=== PATIENT | male | born 1935 | race Asian ===

== ENCOUNTER 2023-11-18 10:38 | Inpatient (IN) | payer OTHER ==
[2023-11-18] VITALS (9 sets, daily range): BP systolic 91–126; BP diastolic 56–76; TEMP 97.4–97.9; O2SAT 92–99
[~2023-11-18] VITALS: Ht 165.1 cm; Wt 79.4 kg
[~2023-11-18 10:38] MED LIST: AMIN30LI66 GT; ASCO500T21 GT; COLL30OI TP; MULT-619 GT; MUPI22OI2 TP; VITS42.53 TP
[2023-11-18] MEDS: IV NS 0.9% 1,000 ML BAG IV ONE (11:33)
[2023-11-18] MEDS: PIPERACILLIN /TAZOBACTAM 3.375 G in IV D5W 50 ML IV ONE (11:35)
[2023-11-18] MEDS ORDERED: DEXTROSE 50%-WATER 50 ML DISP.SYRIN ONE (11:36)
[2023-11-18] MEDS ORDERED: ACETAMINOPHEN 650 MG/SUPP.RECT RC ONE (11:36)
[2023-11-18] MEDS: DEXTROSE 50%-WATER 50 ML DISP.SYRIN IV ONE (11:37)
[2023-11-18] MEDS: ACETAMINOPHEN 650 MG/SUPP.RECT RC ONE (11:37)
[2023-11-18 11:48] LABS: CALCIUM, SERUM 8.5 mg/dL (8.5-10.1); CARBON DIOXIDE 23 mmol/L (21-32); CHLORIDE 102 mmol/L (98-107); GLUCOSE 61 mg/dL (74-106); SODIUM SERUM 133 mmol/L (136-145); UREA NITROGEN, BLOOD 71 mg/dL (7-18)
[2023-11-18] MEDS: VANCOMYCIN 1 GM in IV D5W 250 ML IV ONE (11:50)
[2023-11-18 11:51] LABS: BASOPHILS % (AUTO) 0.2 % (0.0-2.0); EOSINOPHILS % (AUTO) 0.3 % (0.0-6.0); HEMATOCRIT 21 % (39-51); LYMPHOCYTES # (AUTO) 0.2 K/uL (0.8-4.8); LYMPHOCYTES % (AUTO) 1.7 % (20.0-44.0); MEAN CORPUSCULAR HEMOGLOBIN 29 PG (26.0-33.0); MEAN CORPUSCULAR HGB CONC 32 g/dl (31.0-36.0); MEAN CORPUSCULAR VOLUME 89 fL (80-96); MONOCYTES # (AUTO) 0.2 K/uL (0.1-1.30); MONOCYTES % (AUTO) 2.4 % (2.0-12.0); NEUTROPHILS # (AUTO) 9.6 K/uL (1.8-8.9); NEUTROPHILS % (AUTO) 95.4 % (43.0-81.0); PLATELET COUNT (AUTO) 409 K/uL (150-450); RED BLOOD CELL COUNT(AUTO) 2.38 MIL/uL (4.5-6.0); RED CELL DISTRIBUTION WIDTH 15.9 % (11.5-15.0); WHITE BLOOD COUNT (AUTO) 10.1 K/uL (4.3-11.0)
[2023-11-18 11:53] LABS: HEMOGLOBIN 6.8 g/dL (13.5-17.5)
[2023-11-18] MEDS: AZITHROMYCIN 500 MG in IV D5W 250 ML IV ONE (11:54)
[2023-11-18 11:59] LABS: ALANINE AMINOTRANSFERASE 27 U/L (12-78); ALKALINE PHOSPHATASE 134 U/L (46-116); ASPARTATE AMINOTRANSFERASE 31 U/L (15-37); BILIRUBIN,DIRECT 0.3 mg/dL (0.0-0.2); BILIRUBIN,TOTAL 0.4 mg/dL (0.2-1.0); NT-PRO BNP 4590 pg/mL (0-125); TOTAL PROTEIN, SERUM 6.5 g/dL (6.4-8.2)
[2023-11-18 12:01] LABS: ALBUMIN 1.1 g/dL (3.4-5.0); POTASSIUM 6.3 mmol/L (3.5-5.1)
[2023-11-18 12:29] LABS: BAND % (MANUAL) 8 % (0.0-5.0); NEUTROPHILS % (MANUAL) 81 (42-76)
[2023-11-18] MEDS ORDERED: SODIUM POLYSTYRENE SULFONATE 15 G/60 ML BOTTLE ONE (12:29)
[2023-11-18 12:30] LABS: ANISOCYTOSIS 1+; BASOPHILS % (MANUAL) 0 % (0.0-2.0); EOSINOPHILS % (MANUAL) 0 % (0-4); HYPOCHROMASIA 1+; LYMPHOCYTES % (MANUAL) 6 % (16-48); MONOCYTES % (MANUAL) 5 % (0-11.0); OVALOCYTES 1+; PLATELET ESTIMATE ADEQUATE
[2023-11-18] MEDS ORDERED: SODIUM BICARBONATE SYR 50 MEQ/50 ML DISP.SYRIN ONE (12:30)
[2023-11-18] MEDS: SODIUM POLYSTYRENE SULFONATE 15 G/60 ML BOTTLE PO ONE (12:38)
[2023-11-18] MEDS: SODIUM BICARBONATE SYR 50 MEQ/50 ML DISP.SYRIN IV ONE (12:40)
[2023-11-18] MEDS ORDERED: ALBUTEROL FS 2.5 MG/3 ML VIAL.NEB ONE (13:16)
[2023-11-18] MEDS: ALBUTEROL FS 2.5 MG/3 ML VIAL.NEB NEB ONE (13:21)
[2023-11-18] MEDS ORDERED: ONDANSETRON HCL/PF 4 MG/2 ML VIAL IVP PRN (14:30)
[2023-11-18] MEDS ORDERED: Z GUARD REMEDY 4 OZ OINT TP PRN (14:30)
[2023-11-18] MEDS: PANTOPRAZOLE 40 MG VIAL IV SCH (14:30)
[2023-11-18] MEDS ORDERED: ZOLPIDEM TARTRATE 5 MG TABLET PO PRN (14:30)
[2023-11-18] MEDS: CEFEPIME 2 GM in IV D5W 100 ML IV SCH (17:17)
[2023-11-18] MEDS: IV NS 0.9% 250 ML IV PRN (17:51)
[2023-11-18] MEDS ORDERED: ACET-868 GT (18:16)
[2023-11-18] MEDS ORDERED: FERR220S2 GT (18:16)
[2023-11-18] MEDS ORDERED: ACET-2605 GT (18:16)
[2023-11-18] MEDS ORDERED: CHLO473M5 PO (18:16)
[2023-11-18] MEDS ORDERED: CRAN3875 GT (18:16)
[2023-11-18] MEDS ORDERED: NA P133E RC (18:16)
[2023-11-18] MEDS ORDERED: SITA100T GT (18:16)
[2023-11-18] MEDS ORDERED: EPOE1VIA7 SQ (18:16)
[2023-11-18] MEDS ORDERED: FINA5TAB11 GT (18:16)
[2023-11-18] MEDS ORDERED: MAGN400O6 GT (18:16)
[2023-11-18] MEDS ORDERED: BISA10SU12 RC (18:16)
[2023-11-18] MEDS ORDERED: METF-441 GT (18:16)
[2023-11-18] MEDS ORDERED: LEVE100S GT (18:16)
[2023-11-18] MEDS ORDERED: IPRA4AER IH ×2 (18:16)
[2023-11-18] MEDS ORDERED: HYDR-4209 GT (18:16)
[2023-11-18] MEDS ORDERED: MULT1TAB70 GT (18:16)
[2023-11-18] MEDS ORDERED: PANT40SU2 GT (18:16)
[2023-11-18] MEDS ORDERED: TAMS-12 GT (18:16)
[2023-11-18] MEDS ORDERED: HYDR-4075 GT (18:16)
[2023-11-18] MEDS ORDERED: SENN-261 GT (18:16)
[2023-11-18] MEDS ORDERED: SODI15OR5 GT (18:16)
[2023-11-18] MEDS ORDERED: HONE44PA TP (18:16)
[2023-11-18] MEDS ORDERED: FURO-145 GT (18:16)
[2023-11-18] MEDS ORDERED: NUT.250L18 GT (18:16)
[2023-11-18] MEDS ORDERED: DOCU100C36 GT (18:16)
[2023-11-18] MEDS ORDERED: INSU100V27 SQ (18:16)
[2023-11-18] MEDS ORDERED: INSU100V7 SQ (18:16)
[2023-11-18 18:47] LABS: CALCIUM, SERUM 8.3 mg/dL (8.5-10.1); POTASSIUM 5.1 mmol/L (3.5-5.1)
[2023-11-19] VITALS (7 sets, daily range): BP systolic 97–148; BP diastolic 57–76; TEMP 97.4–97.9; O2SAT 96–99
[2023-11-19 07:06] LABS: BASOPHILS % (AUTO) 0.1 % (0.0-2.0); EOSINOPHILS % (AUTO) 0.4 % (0.0-6.0); HEMATOCRIT 24 % (39-51); HEMOGLOBIN 7.7 g/dL (13.5-17.5); LYMPHOCYTES # (AUTO) 0.3 K/uL (0.8-4.8); LYMPHOCYTES % (AUTO) 3.6 % (20.0-44.0); MEAN CORPUSCULAR HEMOGLOBIN 29 PG (26.0-33.0); MEAN CORPUSCULAR HGB CONC 32 g/dl (31.0-36.0); MEAN CORPUSCULAR VOLUME 88 fL (80-96); MONOCYTES # (AUTO) 0.3 K/uL (0.1-1.30); MONOCYTES % (AUTO) 3.9 % (2.0-12.0); NEUTROPHILS # (AUTO) 7.9 K/uL (1.8-8.9); PLATELET COUNT (AUTO) 340 K/uL (150-450); RED BLOOD CELL COUNT(AUTO) 2.69 MIL/uL (4.5-6.0); WHITE BLOOD COUNT (AUTO) 8.6 K/uL (4.3-11.0)
[2023-11-19 07:32] LABS: CALCIUM, SERUM 8.3 mg/dL (8.5-10.1); CARBON DIOXIDE 21 mmol/L (21-32); CHLORIDE 105 mmol/L (98-107); CREATININE 0.7 mg/dL (0.6-1.3); GLUCOSE 140 mg/dL (74-106); MAGNESIUM 2.7 mg/dL (1.8-2.4); PHOSPHORUS 3.5 mg/dL (2.5-4.9); POTASSIUM 4.6 mmol/L (3.5-5.1); SODIUM SERUM 137 mmol/L (136-145); UREA NITROGEN, BLOOD 59 mg/dL (7-18)
[2023-11-19] MEDS: VANCOMYCIN 1 GM in IV D5W 250 ML IV SCH (10:29)
[2023-11-19] MEDS ORDERED: NA PHOS,M-B/NA PHOS,DI-BA 1 EA ENEMA RC PRN (11:30)
[2023-11-19] MEDS ORDERED: HOME MED MISCELLANEOUS XX SCH (11:30)
[2023-11-19] MEDS ORDERED: BISACODYL SUPP (10 MG) 10 MG/SUPP.RECT SUPP.RECT RC PRN (11:30)
[2023-11-19] MEDS ORDERED: GLUCERNA 1.2 1,000 ML BOTTLE NG PRN (11:30)
[2023-11-19] MEDS ORDERED: MAGNESIUM HYDROXIDE 30 ML UDC GT PRN (11:30)
[2023-11-19] MEDS ORDERED: DEXTROSE 50%-WATER 50 ML DISP.SYRIN IV PRN (11:30)
[2023-11-19] MEDS ORDERED: hydrALAZINE HCL 10 MG TABLET GT PRN (11:30)
[2023-11-19] MEDS ORDERED: PROSTAT (PYXIS) 30 ML UDC GT SCH (12:00)
[2023-11-19] MEDS: GLUCERNA 1.2 1,000 ML BOTTLE NG PRN (12:44)
[2023-11-19] MEDS: ASCORBIC ACID 500 MG TABLET GT SCH (12:44)
[2023-11-19] MEDS: BLOOD SUGAR DIAGNOSTIC 1 EACH STRIP IN SCH (12:44)
[2023-11-19] MEDS: INSULIN REGULAR, HUMAN 100 UNIT/ML 3 ML VIAL SQ PRN (12:45)
[2023-11-19] MEDS: THERAHONEY GEL 1.5 OZ TUBE TP SCH (13:00)
[2023-11-19] MEDS: EPOETIN ALFA (10,000 UNIT) 10,000 UNIT/ML VIAL SQ SCH (16:30)
[2023-11-19] MEDS: SENNOSIDES 8.6 MG TABLET GT SCH (16:49)
[2023-11-19] MEDS: LEVETIRACETAM SOL (5 ML) 100 MG/ML UDC GT SCH (16:49)
[2023-11-19] MEDS: CHLORHEXIDINE GLUCONATE 15 ML UDC MM SCH (16:50)
[2023-11-19] MEDS ORDERED: SODIUM POLYSTYRENE SULFONATE 15 G/60 ML BOTTLE GT SCH (17:00)
[2023-11-19] MEDS: INSULIN GLARGINE, 100 UNIT/ML CARTRIDGE SQ SCH (21:03)
[2023-11-19] MEDS: TAMSULOSIN 0.4 MG CAP.SR.24H GT SCH (21:04)
[2023-11-20] VITALS: BP 137/88; TEMP 98; O2SAT 98
[2023-11-20 04:00] VITALS: BP 121/63; TEMP 98.4; O2SAT 98
[2023-11-20 06:54] LABS: APPEARANCE,URINE TURBID (CLEAR); BILIRUBIN,URINE NEGATIVE (NEGATIVE); BLOOD, URINE 1+ Ery/uL (NEGATIVE); COLOR,URINE DARK YELLOW (YELLOW); KETONES,URINE NEGATIVE (NEGATIVE); LEUKOCYTE ESTERASE ,URINE 1+ (NEGATIVE); NITRITE, URINE NEGATIVE (NEGATIVE); PROTEIN,URINE TRACE mg/dl (NEGATIVE); UGLUCOSE NEGATIVE (NEGATIVE); UROBILINOGEN,URINE 0.2 EU/dL (0.2)
[2023-11-20 07:08] LABS: ADD URINE CULTURE YES; BACTERIA,URINE Rare /HPF (None Seen); RBC,URINE 0-2 /HPF (0-2); SQUAMOUS EPITHELIAL CELL,UR Rare /HPF (None Seen); URINE AMORPHOUS URATE Moderate /HPF (None Seen)
[2023-11-20 07:21] LABS: BASOPHILS % (AUTO) 0.2 % (0.0-2.0); EOSINOPHILS # (AUTO) 0.2 K/uL (0.0-0.7); EOSINOPHILS % (AUTO) 1.6 % (0.0-6.0); HEMATOCRIT 26 % (39-51); HEMOGLOBIN 8.3 g/dL (13.5-17.5); LYMPHOCYTES # (AUTO) 0.3 K/uL (0.8-4.8); LYMPHOCYTES % (AUTO) 2.5 % (20.0-44.0); MEAN CORPUSCULAR HEMOGLOBIN 28 PG (26.0-33.0); MEAN CORPUSCULAR HGB CONC 32 g/dl (31.0-36.0); MEAN CORPUSCULAR VOLUME 87 fL (80-96); MONOCYTES # (AUTO) 0.3 K/uL (0.1-1.30); MONOCYTES % (AUTO) 2.3 % (2.0-12.0); NEUTROPHILS % (AUTO) 93.4 % (43.0-81.0); PLATELET COUNT (AUTO) 374 K/uL (150-450); RED BLOOD CELL COUNT(AUTO) 2.99 MIL/uL (4.5-6.0); RED CELL DISTRIBUTION WIDTH 16.3 % (11.5-15.0); WHITE BLOOD COUNT (AUTO) 11.8 K/uL (4.3-11.0)
[2023-11-20 07:22] LABS: EOSINOPHIL,URINE None Seen
[2023-11-20 07:48] LABS: BILIRUBIN,TOTAL 0.4 mg/dL (0.2-1.0); CALCIUM, SERUM 8.4 mg/dL (8.5-10.1); CREATININE 0.7 mg/dL (0.6-1.3); MAGNESIUM 2.7 mg/dL (1.8-2.4); PHOSPHORUS 3.4 mg/dL (2.5-4.9); TOTAL PROTEIN, SERUM 6.2 g/dL (6.4-8.2)
[2023-11-20 08:15] LABS: ALBUMIN 0.9 g/dL (3.4-5.0)
[2023-11-20] MEDS: FERROUS SULFATE UDC 300 MG/5 ML UDC GT SCH (08:39)
[2023-11-20] MEDS: FINASTERIDE (5 MG) 5 MG TABLET GT SCH (08:39)
[2023-11-20] MEDS: FUROSEMIDE 20 MG TABLET GT SCH (08:40)
[2023-11-20] MEDS: DOCUSATE SODIUM 100 MG CAPSULE PO SCH (08:40)
[2023-11-20] MEDS: MULTIVITAMINS,THERAGRAN 1 UDTAB TABLET GT SCH (08:40)
[2023-11-20] MEDS: PANTOPRAZOLE 40 MG/PACK PACK GT SCH (08:40)
[2023-11-20] MEDS: PROSOURCE / PROSTAT (PYXIS) 30 ML UDC GT SCH (08:42)
[2023-11-20] MEDS: LINAGLIPTIN 5 MG TABLET PO SCH (08:50)
[2023-11-20] MEDS: THERAHONEY GEL 1.5 OZ TUBE TP SCH (08:51)
[2023-11-20] MEDS: MUPIROCIN OINT 2% 22 GM TUBE TP SCH (08:51)
[2023-11-20] MEDS: VITAMINS A AND D 56.7 GM TUBE TP SCH (08:52)
[2023-11-20] MEDS: LORAZEPAM INJ 2 MG/ML VIAL IV PRN (09:32)
[2023-11-20 12:00] VITALS: BP 93/52; TEMP 97.5; O2SAT 98
[2023-11-20 12:47] LABS: ABG OXYGEN SATURATION 93.5 % (92.0-98.5); ABG PCO2 33.5 mmHg (35.0-45.0); ABG PH 7.463 (7.350-7.450); ABG PO2 68.6 mmHg (75.0-100.0); ABG TOTAL HEMOGLOBIN 10.2 G/dL (13.5-18.0); AaDO2 358.4 mmHg; COHb 0.3 % (0.5-1.5); MetHb 0.1 % (0.0-1.5); O2Hb 93.1 % (94.0-97.0); PEEP,BG 5 cm H2O; SITE, ABG Right Radial; VT, ABG 450 mL
[2023-11-20 16:00] VITALS: BP 124/75; TEMP 97.2; O2SAT 99
[2023-11-20 20:00] VITALS: BP 115/72; TEMP 97.8; O2SAT 99
[2023-11-21] VITALS: BP 123/88; TEMP 97.6; O2SAT 98
[2023-11-21 04:00] VITALS: BP 126/79; TEMP 98; O2SAT 98
[2023-11-21 07:26] LABS: BASOPHILS % (AUTO) 0.2 % (0.0-2.0); EOSINOPHILS # (AUTO) 0.4 K/uL (0.0-0.7); HEMATOCRIT 27 % (39-51); HEMOGLOBIN 8.6 g/dL (13.5-17.5); LYMPHOCYTES # (AUTO) 0.3 K/uL (0.8-4.8); LYMPHOCYTES % (AUTO) 1.8 % (20.0-44.0); MEAN CORPUSCULAR HEMOGLOBIN 28 PG (26.0-33.0); MEAN CORPUSCULAR HGB CONC 32 g/dl (31.0-36.0); MEAN CORPUSCULAR VOLUME 88 fL (80-96); MONOCYTES # (AUTO) 0.4 K/uL (0.1-1.30); MONOCYTES % (AUTO) 2.5 % (2.0-12.0); NEUTROPHILS # (AUTO) 16.6 K/uL (1.8-8.9); NEUTROPHILS % (AUTO) 93.5 % (43.0-81.0); PLATELET COUNT (AUTO) 353 K/uL (150-450); RED BLOOD CELL COUNT(AUTO) 3.06 MIL/uL (4.5-6.0); RED CELL DISTRIBUTION WIDTH 16.2 % (11.5-15.0); WHITE BLOOD COUNT (AUTO) 17.8 K/uL (4.3-11.0)
[2023-11-21 07:42] LABS: CALCIUM, SERUM 8.7 mg/dL (8.5-10.1); CREATININE 0.7 mg/dL (0.6-1.3); POTASSIUM 4.3 mmol/L (3.5-5.1)
[2023-11-21 08:00] VITALS: BP 167/92; TEMP 97.7; O2SAT 98
[2023-11-21 09:08] LABS: PTH, INTACT 21 pg/mL (15-65)
[2023-11-21 11:07] LABS: *SPE A/G RATIO 0.3 (0.7-1.7); *SPE ALBUMIN 1.4 g/dL (2.9-4.4); *SPE ALPHA-1-GLOBULIN 0.5 g/dL (0.0-0.4); *SPE ALPHA-2-GLOBULIN 1.2 g/dL (0.4-1.0); *SPE BETA GLOBULIN 0.8 g/dL (0.7-1.3); *SPE GLOBULIN, TOTAL 4.2 g/dL (2.2-3.9); *SPE M-SPIKE Not Observed g/dL (Not Observed); *SPE PROTEIN TOTAL 5.6 g/dL (6.0-8.5); *SPEGAMMA GLOBULIN 1.7 g/dL (0.4-1.8)
[2023-11-21 12:00] VITALS: BP 154/86; TEMP 98; O2SAT 98
[2023-11-21] MEDS: AZITHROMYCIN 500 MG in IV D5W 250 ML IV SCH (14:00)
[2023-11-21 16:00] VITALS: BP 138/94; TEMP 98.2; O2SAT 97
[2023-11-21 20:00] VITALS: BP 116/61; TEMP 98.7; O2SAT 97
[2023-11-21] MEDS: MEROPENEM 1 G in IV NS 0.9% 100 ML IV SCH (22:41)
[2023-11-22] VITALS: BP 132/87; TEMP 98; O2SAT 97
[2023-11-22 04:00] VITALS: BP 114/78; TEMP 97.6; O2SAT 97
[2023-11-22 07:10] LABS: BASOPHILS % (AUTO) 0.2 % (0.0-2.0); EOSINOPHILS # (AUTO) 0.3 K/uL (0.0-0.7); EOSINOPHILS % (AUTO) 1.5 % (0.0-6.0); HEMATOCRIT 25 % (39-51); HEMOGLOBIN 7.8 g/dL (13.5-17.5); LYMPHOCYTES # (AUTO) 0.5 K/uL (0.8-4.8); LYMPHOCYTES % (AUTO) 2.5 % (20.0-44.0); MEAN CORPUSCULAR HEMOGLOBIN 28 PG (26.0-33.0); MEAN CORPUSCULAR HGB CONC 31 g/dl (31.0-36.0); MEAN CORPUSCULAR VOLUME 89 fL (80-96); MONOCYTES # (AUTO) 0.5 K/uL (0.1-1.30); MONOCYTES % (AUTO) 2.5 % (2.0-12.0); NEUTROPHILS # (AUTO) 18.8 K/uL (1.8-8.9); NEUTROPHILS % (AUTO) 93.3 % (43.0-81.0); PLATELET COUNT (AUTO) 333 K/uL (150-450); RED BLOOD CELL COUNT(AUTO) 2.84 MIL/uL (4.5-6.0); WHITE BLOOD COUNT (AUTO) 20.1 K/uL (4.3-11.0)
[2023-11-22 07:45] LABS: CALCIUM, SERUM 8.8 mg/dL (8.5-10.1); CREATININE 0.8 mg/dL (0.6-1.3); POTASSIUM 4.6 mmol/L (3.5-5.1)
[2023-11-22 08:00] VITALS: BP 106/66; TEMP 97.5; O2SAT 97
[2023-11-22 12:00] VITALS: BP 160/60; TEMP 97.5; O2SAT 100
[2023-11-22 16:00] VITALS: BP 105/61; TEMP 97.5; O2SAT 99
[2023-11-22 20:00] VITALS: BP 112/70; TEMP 97.3; O2SAT 100
[2023-11-23] VITALS: BP 113/83; TEMP 98.7; O2SAT 100
[2023-11-23 04:00] VITALS: BP 121/78; TEMP 97.2; O2SAT 100
[2023-11-23 07:17] LABS: BASOPHILS % (AUTO) 0.2 % (0.0-2.0); EOSINOPHILS # (AUTO) 0.3 K/uL (0.0-0.7); EOSINOPHILS % (AUTO) 1.8 % (0.0-6.0); HEMATOCRIT 25 % (39-51); HEMOGLOBIN 7.8 g/dL (13.5-17.5); LYMPHOCYTES # (AUTO) 0.6 K/uL (0.8-4.8); LYMPHOCYTES % (AUTO) 3.4 % (20.0-44.0); MEAN CORPUSCULAR HEMOGLOBIN 28 PG (26.0-33.0); MEAN CORPUSCULAR HGB CONC 31 g/dl (31.0-36.0); MEAN CORPUSCULAR VOLUME 89 fL (80-96); MONOCYTES # (AUTO) 0.5 K/uL (0.1-1.30); MONOCYTES % (AUTO) 2.9 % (2.0-12.0); NEUTROPHILS # (AUTO) 15.5 K/uL (1.8-8.9); NEUTROPHILS % (AUTO) 91.7 % (43.0-81.0); PLATELET COUNT (AUTO) 316 K/uL (150-450); RED CELL DISTRIBUTION WIDTH 16.4 % (11.5-15.0)
[2023-11-23 07:47] LABS: CHLORIDE 103 mmol/L (98-107); CREATININE 0.6 mg/dL (0.6-1.3); GLUCOSE 194 mg/dL (74-106); POTASSIUM 4.4 mmol/L (3.5-5.1); SODIUM SERUM 135 mmol/L (136-145); UREA NITROGEN, BLOOD 37 mg/dL (7-18)
[2023-11-23 08:00] VITALS: BP 116/75; TEMP 98.1; O2SAT 100
[2023-11-23 08:12] LABS: CALCIUM, SERUM 8.7 mg/dL (8.5-10.1); CARBON DIOXIDE 23 mmol/L (21-32)
[2023-11-23] MEDS: AZITHROMYCIN 250 MG TABLET GT SCH (11:31)
[2023-11-23 12:00] VITALS: BP 117/67; TEMP 97.6; O2SAT 99
[2023-11-23 16:00] VITALS: BP 127/73; TEMP 99.1; O2SAT 93
[2023-11-23 20:00] VITALS: BP 112/64; TEMP 97.3; O2SAT 93
[2023-11-24] VITALS: BP 128/66; TEMP 97.5; O2SAT 94
[2023-11-24 04:00] VITALS: BP 126/82; TEMP 97.3; O2SAT 92
[2023-11-24] MEDS: ALBUTEROL FS 2.5 MG/3 ML VIAL.NEB NEB PRN (05:10)
[2023-11-24] MEDS: IPRATROPIUM NEB FS 0.5 MG/2.5 ML AMPUL.NEB NEB PRN (05:10)
[2023-11-24] MEDS: MORPHINE SULFATE INJ 2 MG/ML DISP.SYRIN IV PRN (05:47)
[2023-11-24 07:09] LABS: EOSINOPHILS # (AUTO) 0.3 K/uL (0.0-0.7); EOSINOPHILS % (AUTO) 1.8 % (0.0-6.0); HEMATOCRIT 25 % (39-51); HEMOGLOBIN 7.8 g/dL (13.5-17.5); LYMPHOCYTES # (AUTO) 0.3 K/uL (0.8-4.8); LYMPHOCYTES % (AUTO) 2.3 % (20.0-44.0); MEAN CORPUSCULAR HEMOGLOBIN 28 PG (26.0-33.0); MEAN CORPUSCULAR HGB CONC 31 g/dl (31.0-36.0); MEAN CORPUSCULAR VOLUME 89 fL (80-96); MONOCYTES # (AUTO) 0.3 K/uL (0.1-1.30); MONOCYTES % (AUTO) 2.4 % (2.0-12.0); NEUTROPHILS # (AUTO) 13.3 K/uL (1.8-8.9); NEUTROPHILS % (AUTO) 93.5 % (43.0-81.0); PLATELET COUNT (AUTO) 332 K/uL (150-450); RED BLOOD CELL COUNT(AUTO) 2.83 MIL/uL (4.5-6.0); RED CELL DISTRIBUTION WIDTH 16.6 % (11.5-15.0); WHITE BLOOD COUNT (AUTO) 14.2 K/uL (4.3-11.0)
[2023-11-24 07:26] LABS: CARBON DIOXIDE 27 mmol/L (21-32); CHLORIDE 103 mmol/L (98-107); CREATININE 0.6 mg/dL (0.6-1.3); GLUCOSE 205 mg/dL (74-106); POTASSIUM 4.6 mmol/L (3.5-5.1); SODIUM SERUM 136 mmol/L (136-145); UREA NITROGEN, BLOOD 36 mg/dL (7-18)
[2023-11-24 08:00] VITALS: BP 107/54; TEMP 97.4; O2SAT 97
[2023-11-24 08:08] LABS: BILIRUBIN,DIRECT 0.1 mg/dL (0.0-0.2); BILIRUBIN,TOTAL 0.2 mg/dL (0.2-1.0); MAGNESIUM 2.2 mg/dL (1.8-2.4); PHOSPHORUS 3.4 mg/dL (2.5-4.9); TOTAL PROTEIN, SERUM 6.5 g/dL (6.4-8.2)
[2023-11-24 11:40] LABS: ABG BASE EXCESS 1.7 mmol/L; ABG OXYGEN SATURATION 97.3 % (92.0-98.5); ABG PCO2 40.3 mmHg (35.0-45.0); ABG PH 7.429 (7.350-7.450); ABG PO2 92.8 mmHg (75.0-100.0); AaDO2 435.3 mmHg; COHb 0.2 % (0.5-1.5); O2Hb 97.1 % (94.0-97.0); PEEP,BG 8 cm H2O; SITE, ABG Right Brachial; VENT MODE, BG AC 80%; VT, ABG 450 mL
[2023-11-24 12:00] VITALS: BP 109/59; TEMP 97.1; O2SAT 98
[2023-11-24 16:00] VITALS: BP 90/54; TEMP 98; O2SAT 98
[2023-11-24 20:00] VITALS: BP 124/68; TEMP 98; O2SAT 100
[2023-11-25] VITALS: BP 116/77; TEMP 97.5; O2SAT 100
[2023-11-25 04:00] VITALS: BP 111/65; TEMP 97.8; O2SAT 100
[2023-11-25 06:52] LABS: BASOPHILS % (AUTO) 0.3 % (0.0-2.0); EOSINOPHILS # (AUTO) 0.3 K/uL (0.0-0.7); EOSINOPHILS % (AUTO) 2.4 % (0.0-6.0); HEMATOCRIT 24 % (39-51); HEMOGLOBIN 7.4 g/dL (13.5-17.5); LYMPHOCYTES # (AUTO) 0.7 K/uL (0.8-4.8); LYMPHOCYTES % (AUTO) 5.7 % (20.0-44.0); MEAN CORPUSCULAR HEMOGLOBIN 28 PG (26.0-33.0); MEAN CORPUSCULAR HGB CONC 31 g/dl (31.0-36.0); MEAN CORPUSCULAR VOLUME 89 fL (80-96); MONOCYTES # (AUTO) 0.4 K/uL (0.1-1.30); MONOCYTES % (AUTO) 3.3 % (2.0-12.0); NEUTROPHILS # (AUTO) 11.1 K/uL (1.8-8.9); NEUTROPHILS % (AUTO) 88.3 % (43.0-81.0); PLATELET COUNT (AUTO) 305 K/uL (150-450); RED BLOOD CELL COUNT(AUTO) 2.66 MIL/uL (4.5-6.0); RED CELL DISTRIBUTION WIDTH 16.4 % (11.5-15.0); WHITE BLOOD COUNT (AUTO) 12.6 K/uL (4.3-11.0)
[2023-11-25 07:01] LABS: CARBON DIOXIDE 28 mmol/L (21-32); CHLORIDE 105 mmol/L (98-107); CREATININE 0.6 mg/dL (0.6-1.3); GLUCOSE 178 mg/dL (74-106); SODIUM SERUM 137 mmol/L (136-145); UREA NITROGEN, BLOOD 34 mg/dL (7-18)
[2023-11-25 08:00] VITALS: BP 131/69; TEMP 98.1; O2SAT 100
[2023-11-25] MEDS: VANCOMYCIN 750 MG in IV D5W 250 ML IV SCH (11:21)
[2023-11-25 12:00] VITALS: BP 95/56; TEMP 97.9; O2SAT 100
[2023-11-25 16:00] VITALS: BP 129/70; TEMP 98.4; O2SAT 99
[2023-11-25 20:00] VITALS: BP 144/64; TEMP 98.2; O2SAT 99
[2023-11-26] VITALS: BP 121/52; TEMP 98.2; O2SAT 99
[2023-11-26 04:00] VITALS: BP 110/51; TEMP 97.9; O2SAT 99
[2023-11-26 06:51] LABS: BASOPHILS % (AUTO) 0.3 % (0.0-2.0); EOSINOPHILS # (AUTO) 0.2 K/uL (0.0-0.7); HEMATOCRIT 26 % (39-51); HEMOGLOBIN 8.2 g/dL (13.5-17.5); LYMPHOCYTES # (AUTO) 0.8 K/uL (0.8-4.8); LYMPHOCYTES % (AUTO) 7.6 % (20.0-44.0); MEAN CORPUSCULAR HEMOGLOBIN 28 PG (26.0-33.0); MEAN CORPUSCULAR HGB CONC 32 g/dl (31.0-36.0); MEAN CORPUSCULAR VOLUME 88 fL (80-96); MONOCYTES # (AUTO) 0.4 K/uL (0.1-1.30); MONOCYTES % (AUTO) 4.1 % (2.0-12.0); NEUTROPHILS # (AUTO) 9.2 K/uL (1.8-8.9); PLATELET COUNT (AUTO) 269 K/uL (150-450); RED BLOOD CELL COUNT(AUTO) 2.92 MIL/uL (4.5-6.0); RED CELL DISTRIBUTION WIDTH 16.6 % (11.5-15.0); WHITE BLOOD COUNT (AUTO) 10.8 K/uL (4.3-11.0)
[2023-11-26 07:13] LABS: CALCIUM, SERUM 9.3 mg/dL (8.5-10.1); CREATININE 0.6 mg/dL (0.6-1.3); MAGNESIUM 2.2 mg/dL (1.8-2.4); PHOSPHORUS 4.1 mg/dL (2.5-4.9); POTASSIUM 4.7 mmol/L (3.5-5.1)
[2023-11-26 08:00] VITALS: BP 134/57; TEMP 98.2; O2SAT 98
[2023-11-26] MEDS: THERAHONEY GEL 1.5 OZ TUBE TP SCH (11:50)
[2023-11-26 12:00] VITALS: BP 115/71; TEMP 97.2; O2SAT 99
[2023-11-26 16:00] VITALS: BP 124/67; TEMP 97.3; O2SAT 98
[2023-11-26 20:00] VITALS: BP 125/64; TEMP 97.8; O2SAT 98
[2023-11-27] VITALS: BP 124/64; TEMP 97.8; O2SAT 98
[2023-11-27 04:00] VITALS: BP 119/72; TEMP 98.3; O2SAT 100
[2023-11-27 07:46] LABS: BASOPHILS % (AUTO) 0.2 % (0.0-2.0); EOSINOPHILS # (AUTO) 0.2 K/uL (0.0-0.7); EOSINOPHILS % (AUTO) 2.3 % (0.0-6.0); HEMATOCRIT 25 % (39-51); HEMOGLOBIN 7.8 g/dL (13.5-17.5); LYMPHOCYTES # (AUTO) 0.7 K/uL (0.8-4.8); MEAN CORPUSCULAR HEMOGLOBIN 28 PG (26.0-33.0); MEAN CORPUSCULAR HGB CONC 32 g/dl (31.0-36.0); MEAN CORPUSCULAR VOLUME 89 fL (80-96); MONOCYTES # (AUTO) 0.4 K/uL (0.1-1.30); MONOCYTES % (AUTO) 3.8 % (2.0-12.0); NEUTROPHILS # (AUTO) 8.9 K/uL (1.8-8.9); NEUTROPHILS % (AUTO) 86.7 % (43.0-81.0); PLATELET COUNT (AUTO) 245 K/uL (150-450); RED BLOOD CELL COUNT(AUTO) 2.79 MIL/uL (4.5-6.0); RED CELL DISTRIBUTION WIDTH 16.7 % (11.5-15.0); WHITE BLOOD COUNT (AUTO) 10.3 K/uL (4.3-11.0)
[2023-11-27 08:00] VITALS: BP 96/75; TEMP 97.7; O2SAT 100
[2023-11-27 08:03] LABS: CALCIUM, SERUM 8.9 mg/dL (8.5-10.1); CARBON DIOXIDE 29 mmol/L (21-32); CHLORIDE 103 mmol/L (98-107); CREATININE 0.5 mg/dL (0.6-1.3); GLUCOSE 176 mg/dL (74-106); PHOSPHORUS 4.1 mg/dL (2.5-4.9); POTASSIUM 4.8 mmol/L (3.5-5.1); SODIUM SERUM 136 mmol/L (136-145); UREA NITROGEN, BLOOD 34 mg/dL (7-18)
[2023-11-27 12:00] VITALS: BP 95/56; TEMP 97; O2SAT 100
[2023-11-27 16:00] VITALS: BP 109/70; TEMP 96.5; O2SAT 100
[2023-11-27 19:13] LABS: ABG BASE EXCESS 0.1 mmol/L; ABG OXYGEN SATURATION 97.1 % (92.0-98.5); ABG PCO2 40.8 mmHg (35.0-45.0); ABG PH 7.402 (7.350-7.450); ABG PO2 99.2 mmHg (75.0-100.0); ABG TOTAL HEMOGLOBIN 8.4 G/dL (13.5-18.0); AaDO2 319.9 mmHg; COHb 0.5 % (0.5-1.5); MetHb 0.2 % (0.0-1.5); O2Hb 96.4 % (94.0-97.0); SITE, ABG Right Radial; VENT MODE, BG AC 20 425 65% +8
[2023-11-27 20:00] VITALS: BP 106/61; TEMP 97.9; O2SAT 100
[2023-11-28] VITALS: BP 117/83; TEMP 98.1; O2SAT 98
[2023-11-28 04:00] VITALS: BP 116/65; TEMP 98.6; O2SAT 98
[2023-11-28 06:52] LABS: BASOPHILS % (AUTO) 0.2 % (0.0-2.0); EOSINOPHILS # (AUTO) 0.2 K/uL (0.0-0.7); EOSINOPHILS % (AUTO) 1.9 % (0.0-6.0); HEMATOCRIT 26 % (39-51); HEMOGLOBIN 8.3 g/dL (13.5-17.5); LYMPHOCYTES # (AUTO) 0.4 K/uL (0.8-4.8); LYMPHOCYTES % (AUTO) 4.2 % (20.0-44.0); MEAN CORPUSCULAR HEMOGLOBIN 28 PG (26.0-33.0); MEAN CORPUSCULAR HGB CONC 32 g/dl (31.0-36.0); MEAN CORPUSCULAR VOLUME 90 fL (80-96); MONOCYTES # (AUTO) 0.5 K/uL (0.1-1.30); MONOCYTES % (AUTO) 5.2 % (2.0-12.0); NEUTROPHILS # (AUTO) 9.2 K/uL (1.8-8.9); NEUTROPHILS % (AUTO) 88.5 % (43.0-81.0); PLATELET COUNT (AUTO) 236 K/uL (150-450); RED BLOOD CELL COUNT(AUTO) 2.95 MIL/uL (4.5-6.0); RED CELL DISTRIBUTION WIDTH 16.3 % (11.5-15.0); WHITE BLOOD COUNT (AUTO) 10.4 K/uL (4.3-11.0)
[2023-11-28 07:02] LABS: CREATININE 0.6 mg/dL (0.6-1.3); POTASSIUM 4.7 mmol/L (3.5-5.1)
[2023-11-28 08:00] VITALS: BP 106/70; TEMP 97.7; O2SAT 95
[2023-11-28 12:00] VITALS: BP 112/70; TEMP 97.1; O2SAT 94
[2023-11-28 16:00] VITALS: BP 96/69; TEMP 97.1; O2SAT 94
[2023-11-28 20:00] VITALS: BP 108/72; TEMP 97.3; O2SAT 99
[2023-11-28] MEDS: VANCOMYCIN 1 GM in IV D5W 250ml IV SCH (22:22)
[2023-11-29] VITALS: BP 112/82; TEMP 97.4; O2SAT 100
[2023-11-29 04:00] VITALS: BP 122/82; TEMP 97; O2SAT 100
[2023-11-29 07:47] LABS: BASOPHILS % (AUTO) 0.1 % (0.0-2.0); EOSINOPHILS # (AUTO) 0.3 K/uL (0.0-0.7); EOSINOPHILS % (AUTO) 2.2 % (0.0-6.0); HEMATOCRIT 26 % (39-51); HEMOGLOBIN 7.8 g/dL (13.5-17.5); LYMPHOCYTES # (AUTO) 0.5 K/uL (0.8-4.8); LYMPHOCYTES % (AUTO) 4.3 % (20.0-44.0); MEAN CORPUSCULAR HEMOGLOBIN 28 PG (26.0-33.0); MEAN CORPUSCULAR HGB CONC 30 g/dl (31.0-36.0); MEAN CORPUSCULAR VOLUME 91 fL (80-96); MONOCYTES # (AUTO) 0.6 K/uL (0.1-1.30); MONOCYTES % (AUTO) 4.9 % (2.0-12.0); NEUTROPHILS # (AUTO) 10.5 K/uL (1.8-8.9); NEUTROPHILS % (AUTO) 88.5 % (43.0-81.0); PLATELET COUNT (AUTO) 229 K/uL (150-450); RED BLOOD CELL COUNT(AUTO) 2.82 MIL/uL (4.5-6.0); RED CELL DISTRIBUTION WIDTH 17.2 % (11.5-15.0); WHITE BLOOD COUNT (AUTO) 11.9 K/uL (4.3-11.0)
[2023-11-29 08:00] VITALS: BP 108/79; TEMP 96.5; O2SAT 99
[2023-11-29 08:03] LABS: CARBON DIOXIDE 32 mmol/L (21-32); CHLORIDE 103 mmol/L (98-107); CREATININE 0.5 mg/dL (0.6-1.3); GLUCOSE 158 mg/dL (74-106); MAGNESIUM 2.1 mg/dL (1.8-2.4); PHOSPHORUS 3.9 mg/dL (2.5-4.9); POTASSIUM 4.7 mmol/L (3.5-5.1); SODIUM SERUM 137 mmol/L (136-145); UREA NITROGEN, BLOOD 35 mg/dL (7-18)
[2023-11-29 12:00] VITALS: BP 99/66; TEMP 96.1; O2SAT 100
[2023-11-29 16:00] VITALS: BP 107/71; TEMP 96.1; O2SAT 100
[2023-11-29 20:00] VITALS: BP 101/64; TEMP 97.7; O2SAT 97
[2023-11-30] VITALS: BP 122/86; TEMP 98; O2SAT 97
[2023-11-30 04:00] VITALS: BP 107/71; TEMP 98.1; O2SAT 98
[2023-11-30 08:00] VITALS: BP 104/62; TEMP 97.5; O2SAT 98
[2023-11-30 08:20] LABS: CALCIUM, SERUM 8.9 mg/dL (8.5-10.1); CARBON DIOXIDE 29 mmol/L (21-32); CHLORIDE 102 mmol/L (98-107); CREATININE 0.5 mg/dL (0.6-1.3); GLUCOSE 140 mg/dL (74-106); POTASSIUM 4.9 mmol/L (3.5-5.1); SODIUM SERUM 138 mmol/L (136-145); UREA NITROGEN, BLOOD 36 mg/dL (7-18)
[2023-11-30 12:00] VITALS: BP 107/69; TEMP 97.5; O2SAT 98
[2023-11-30 16:00] VITALS: BP 114/72; TEMP 98.6; O2SAT 98
[2023-11-30 20:00] VITALS: BP 123/72; TEMP 97.5; O2SAT 96
[2023-11-30] MEDS: VANCOMYCIN 1 GM in IV D5W 250ml IV SCH (23:19)
[2023-12-01] VITALS: BP 100/61; TEMP 98.1; O2SAT 97
[2023-12-01 04:00] VITALS: BP 112/55; TEMP 97.5; O2SAT 98
[2023-12-01] MEDS: HYDROCODONE/APAP 5/325MG TABLET GT PRN (04:08)
[2023-12-01] MEDS: COLISTIMETHATE SODIUM 150 MG CBA VIAL NEB SCH (04:36)
[2023-12-01 07:14] LABS: BASOPHILS % (AUTO) 0.2 % (0.0-2.0); EOSINOPHILS # (AUTO) 0.4 K/uL (0.0-0.7); EOSINOPHILS % (AUTO) 3.2 % (0.0-6.0); HEMATOCRIT 24 % (39-51); HEMOGLOBIN 7.6 g/dL (13.5-17.5); LYMPHOCYTES # (AUTO) 0.5 K/uL (0.8-4.8); LYMPHOCYTES % (AUTO) 4.3 % (20.0-44.0); MEAN CORPUSCULAR HEMOGLOBIN 28 PG (26.0-33.0); MEAN CORPUSCULAR HGB CONC 31 g/dl (31.0-36.0); MEAN CORPUSCULAR VOLUME 91 fL (80-96); MONOCYTES # (AUTO) 0.6 K/uL (0.1-1.30); MONOCYTES % (AUTO) 5.5 % (2.0-12.0); NEUTROPHILS # (AUTO) 9.7 K/uL (1.8-8.9); NEUTROPHILS % (AUTO) 86.8 % (43.0-81.0); PLATELET COUNT (AUTO) 210 K/uL (150-450); RED BLOOD CELL COUNT(AUTO) 2.68 MIL/uL (4.5-6.0); RED CELL DISTRIBUTION WIDTH 17.1 % (11.5-15.0); WHITE BLOOD COUNT (AUTO) 11.2 K/uL (4.3-11.0)
[2023-12-01 07:35] LABS: CALCIUM, SERUM 8.8 mg/dL (8.5-10.1); CARBON DIOXIDE 32 mmol/L (21-32); CHLORIDE 102 mmol/L (98-107); CREATININE 0.6 mg/dL (0.6-1.3); GLUCOSE 149 mg/dL (74-106); MAGNESIUM 2.2 mg/dL (1.8-2.4); PHOSPHORUS 4.4 mg/dL (2.5-4.9); POTASSIUM 4.8 mmol/L (3.5-5.1); SODIUM SERUM 138 mmol/L (136-145); UREA NITROGEN, BLOOD 39 mg/dL (7-18)
[2023-12-01 08:00] VITALS: BP 107/90; TEMP 96.1; O2SAT 100
[2023-12-01 12:00] VITALS: BP 104/71; TEMP 97.3; O2SAT 100
[2023-12-01] MEDS: THERAHONEY GEL 1.5 OZ TUBE TP SCH (12:32)
[2023-12-01 15:46] LABS: ABG OXYGEN SATURATION 82.4 % (92.0-98.5); ABG PCO2 49.9 mmHg (35.0-45.0); ABG PH 7.418 (7.350-7.450); ABG PO2 47.7 mmHg (75.0-100.0); ABG TOTAL HEMOGLOBIN 11.1 G/dL (13.5-18.0); AaDO2 252.7 mmHg; COHb 1.1 % (0.5-1.5); MetHb 0.2 % (0.0-1.5); O2Hb 81.3 % (94.0-97.0); PEEP,BG 8 cm H2O; SITE, ABG Right Radial; VENT MODE, BG AC 50%; VT, ABG 425 mL
[2023-12-01 16:00] VITALS: BP 120/71; TEMP 97.6; O2SAT 96
[2023-12-01 20:00] VITALS: BP 113/73; TEMP 97.3; O2SAT 98
[2023-12-01] MEDS: MEROPENEM 1 G in IV NS 0.9% 100 ML IV SCH (20:08)
[2023-12-02] VITALS: BP 106/73; TEMP 97.5; O2SAT 97
[2023-12-02 04:00] VITALS: BP 108/68; TEMP 97.3; O2SAT 94
[2023-12-02 07:51] LABS: CALCIUM, SERUM 8.8 mg/dL (8.5-10.1); CARBON DIOXIDE 31 mmol/L (21-32); CHLORIDE 102 mmol/L (98-107); CREATININE 0.6 mg/dL (0.6-1.3); GLUCOSE 124 mg/dL (74-106); SODIUM SERUM 139 mmol/L (136-145); UREA NITROGEN, BLOOD 40 mg/dL (7-18)
[2023-12-02 08:00] VITALS: BP 120/66; TEMP 97.9; O2SAT 93
[2023-12-02 12:00] VITALS: BP 113/72; TEMP 97.5; O2SAT 92
[2023-12-02 16:00] VITALS: BP 107/73; TEMP 97.5; O2SAT 99
[2023-12-02 20:00] VITALS: BP 106/66; TEMP 97; O2SAT 97
[2023-12-03] VITALS: BP 108/66; TEMP 97.2; O2SAT 97
[2023-12-03 04:00] VITALS: BP 121/82; TEMP 98.3; O2SAT 97
[2023-12-03] MEDS ORDERED: COLISTIMETHATE SODIUM 150 MG CBA VIAL ONE (05:25)
[2023-12-03 08:00] VITALS: BP 100/58; TEMP 97.3; O2SAT 100
[2023-12-03 08:07] LABS: CALCIUM, SERUM 8.9 mg/dL (8.5-10.1); CREATININE 0.6 mg/dL (0.6-1.3); POTASSIUM 4.6 mmol/L (3.5-5.1)
[2023-12-03 12:00] VITALS: BP 106/61; TEMP 97.5; O2SAT 93
[2023-12-03] MEDS ORDERED: ACETAMINOPHEN 650 MG/SUPP.RECT RC PRN (15:00)
[2023-12-03] MEDS: MORPHINE SULFATE PF DRIP 100 MG in IV D5W 96 ML IV PRN (15:57)
[2023-12-03] MEDS: KEY,NONCONTROL,TO KEEP IN PYXI 1 EA MC ONE (16:03)
[2023-12-03] MEDS: LORAZEPAM INJ 2 MG/ML VIAL IV PRN (17:03)
[2023-12-03] MEDS ORDERED: KEY,NONCONTROL,TO KEEP IN PYXI 1 EA MC ONE (18:23)
== END 2023-12-03 17:00 | DRG 720 ==
LOC: ER 10:40 → TELE-TD 15:54 → TELE1 11-19 09:59 → MEDSG1 12-03 16:08
PROVIDERS: ADMIT Nurse Practitioner Acute Care
PROC: 5A1955Z Respiratory Ventilation, Greater than 96 Consecutive Hours (ICD-10-PCS; principal; 2023-11-18)
PROC: 30233N1 Transfusion of Nonautologous Red Blood Cells into Peripheral Vein, Percutaneous Approach (ICD-10-PCS; 2023-11-18)
DX: A41.9 Sepsis, unspecified organism (principal); N17.0 Acute kidney failure with tubular necrosis; J96.21 Acute and chronic respiratory failure with hypoxia; J95.851 Ventilator associated pneumonia; G93.41 Metabolic encephalopathy; E43 Unspecified severe protein-calorie malnutrition; J15.69 Pneumonia due to other Gram-negative bacteria; Z51.5 Encounter for palliative care; R64 Cachexia; J15.9 Unspecified bacterial pneumonia; R53.2 Functional quadriplegia; D63.8 Anemia in other chronic diseases classified elsewhere; E88.09 Other disorders of plasma-protein metabolism, not elsewhere classified; E11.9 Type 2 diabetes mellitus without complications; E87.5 Hyperkalemia; G40.909 Epilepsy, unspecified, not intractable, without status epilepticus; R13.10 Dysphagia, unspecified; R62.7 Adult failure to thrive; Z86.73 Personal history of transient ischemic attack (TIA), and cerebral infarction without residual deficits; Z93.0 Tracheostomy status; Z93.1 Gastrostomy status; Z66 Do not resuscitate; Z99.11 Dependence on respirator [ventilator] status; N39.0 Urinary tract infection, site not specified; J90 Pleural effusion, not elsewhere classified; D68.69 Other thrombophilia; Z74.09 Other reduced mobility; Z68.29 Body mass index [BMI] 29.0-29.9, adult; L89.896 Pressure-induced deep tissue damage of other site; L89.156 Pressure-induced deep tissue damage of sacral region; L89.810 Pressure ulcer of head, unstageable; S31.20XA Unspecified open wound of penis, initial encounter; X58.XXXA Exposure to other specified factors, initial encounter; Y93.9 Activity, unspecified; D50.0 Iron deficiency anemia secondary to blood loss (chronic); Z20.822 Contact with and (suspected) exposure to COVID-19; S11.80XA Unspecified open wound of other specified part of neck, initial encounter; Y83.3 Surgical operation with formation of external stoma as the cause of abnormal reaction of the patient, or of later complication, without mention of misadventure at the time of the procedure; Y92.129 Unspecified place in nursing home as the place of occurrence of the external cause
CPT/HCPCS: 31720; 36415; 36600; 71045-TC; 76770-TC; 80048-TC; 80053-TC; 80076-TC; 80202-TC; 81001; 82550-TC; 82728-TC; 82803-TC; 82962-TC; 83540-TC; 83735-TC; 83880; 83970; 84100-TC; 84155; 84165; 84484-TC; 85025-TC; 86850-TC; 87040-TC; 87086-TC; 93307-TC; 94002-TC; 94003-TC; 94640-TC; 94760-TC; 94762-TC; 94799-TC; A4223; A4623; A6253; A6403; A7526; C9113; G0378; J0456; J0692; J0770; J0885; J1815; J1953; J2060; J2185; J2270; J2274; J2543; J3370; J3371; J3490; J7030; J7040; J7050; J7060; P9016